=== PATIENT | female | born 1980 | race Caucasian/White ===

== ENCOUNTER 2024-06-19 12:59 | Emergency (ER) | payer OTHER, SELFPAY ==
[2024-06-19 13:17] VITALS: BP 145/98; PULSE 94; RESP 12; TEMP 36.6; O2SAT 97; BMI 42.8
[2024-06-19 13:56] LABS: Add Manual Diff / Slide Review NO; Basophils Absolute Auto 300 /uL (0-100); Basophils Percent Auto 2.9 % (0-2); Eosinophils Absolute Auto 200 /uL (0-450); Eosinophils Percent Auto 1.8 % (2-4); Hematocrit 42.3 % (36-46); Hemoglobin 14.3 g/dL (12.0-16.0); Lymphocytes Absolute Auto 1700 /uL (1100-4500); Lymphocytes Percent Auto 18.1 % (25-40); Mean Corpuscular HGB Conc 33.8 % (30-36); Mean Corpuscular Hemoglobin 30.6 PG (26-34); Mean Corpuscular Volume 90.4 fL (80-100); Monocytes Absolute Auto 600 /uL (0-900); Monocytes Percent Auto 6.3 % (3-14); Neutrophils Absolute Auto 6600 /uL (1500-7000); Neutrophils Percent Auto 70.9 % (50-75); Platelet Count 337 X10^3/uL (150-400); Red Blood Cell Count 4.68 X10^6/uL (4.0-5.2); Red Cell Distribution Width 14.1 % (11.6-14.8); White Blood Cell Count 9.3 X10^3/uL (4.5-11.0)
--- NOTE | 2024-06-19 14:04 | ED_ITS ---
HPI - Abdominal Pain General Chief Complaint: Abdominal Pain Stated Complaint: abd px Time Seen by Provider: 06/19/24 13:47 Source: patient Mode of arrival: Ambulatory History of Present Illness HPI narrative: Patient is a 43-year-old female history of severe PTSD hysterectomy secondary to fibroids and endometriosis, factor 5 Leiden on Eliquis presenting today with vaginal bleeding. She reports that she is having some lower abdominal pain she had a little bit last night this morning she is having increasing pain and she had blood on the tissue when she wiped. No painful frequent urination no nausea vomiting no back pain. She was visiting from out of town. Hysterectomy was 2 years ago. She denies any sort of trauma or injury to her vagina. Related Data Previous Rx's Medication Instructions Recorded hydrocodone 5 mg-acetaminophen 325 1 tab PO Q6H PRN pain #10 tabs 06/19/24 mg tablet Allergies Allergy/AdvReac Type Severity Reaction Status Date / Time No Known Drug Allergies Allergy Verified 06/19/24 13:23 Patient History Social History Smoking Status: Never smoker Smoking Status: Never smoker tobacco type: cigarettes Exam Initial Vital Signs Initial Vital Signs: Vital Signs Temperature 98 F 06/19/24 13:17 Pulse Rate 94 H 06/19/24 13:17 Respiratory Rate 12 06/19/24 13:17 Blood Pressure 145/98 H 06/19/24 13:17 Pulse Oximetry 97 06/19/24 13:17 Oxygen Delivery Method Room Air 06/19/24 13:17 GENERAL: Alert tearful 43-year-old female and in no acute distress. HEENT: Head atraumatic,EOMI, pupils reactive, face symmetric, moist mucous membranes CARDIOVASCULAR: Regular rate and rhythm without murmurs, rubs or gallops. RESPIRATORY: Breath sounds equal bilaterally, no wheezes rales or rhonchi. ABDOMEN: Soft, mild lower abdominal pain no guarding no rebound : No CVA tenderness PELVIC: External genitalia is normal, no vaginal bleeding, no vaginal discharge, no odor, there is a small sore around the 12:00 p.m. roof of the vaginal wall no active bleeding no gross discharge EXTREMITIES: Normal range of motion, no clubbing or edema. Neurovascularly intact NEUROLOGICAL: Alert and oriented x4.Normal gait and speech. SKIN: Warm, dry, no laceration, no petechiae, no rashes or lesions. Course Orders Ordered: ED Orders 06/19/24 13:23 EKG-12 Lead Stat 06/19/24 13:51 Complete Blood Count AUTO DIFF Stat Comprehensive Metabolic Panel Stat Lipase Stat 06/19/24 14:17 CT abdomen pelvis w con Stat 06/19/24 15:34 Genital Culture Stat Discontinued Medications Hydromorphone HCl (Hydromorphone 0.5 Mg Inj) 0.5 mg IV NOW ONE Stop: 06/19/24 15:06 Last Admin: 06/19/24 15:11 Dose: 0.5 mg Documented By: CAMPOS Morphine Sulfate (Morphine 4 Mg/Ml Inj) 4 mg IV NOW ONE Stop: 06/19/24 14:19 Last Admin: 06/19/24 14:35 Dose: 4 mg Documented By: SONJA Ondansetron HCl (Ondansetron 4 Mg/2 Ml Inj) 4 mg IV NOW PRN PRN Reason: Nausea And Vomiting Last Admin: 06/19/24 14:35 Dose: 4 mg Documented By: SONJA Ondansetron HCl (Ondansetron 4 Mg Odt) 4 mg PO NOW PRN PRN Reason: Nausea And Vomiting Vital Signs Vital signs: Vital Signs - 8 hr 06/19/24 13:17 06/19/24 15:42 Temperature 98 F Pulse Rate 94 H 81 Respiratory Rate 12 14 Blood Pressure 145/98 H 134/94 H Pulse Oximetry 97 98 Oxygen Delivery Method Room Air Room Air MDM - Abdominal Pain Lab Data 06/19/24 13:51 06/19/24 13:51 Labs: Lab Results 06/19/24 Range/Units 13:51 WBC 9.3 (4.5-11.0) X10^3/uL RBC 4.68 (4.0-5.2) X10^6/uL Hgb 14.3 (12.0-16.0) g/dL Hct 42.3 (36-46) % MCV 90.4 (80-100) fL MCH 30.6 (26-34) PG MCHC 33.8 (30-36) % RDW 14.1 (11.6-14.8) % Plt Count 337 (150-400) X10^3/uL Neut % (Auto) 70.9 (50-75) % Lymph % (Auto) 18.1 L (25-40) % [place] % (Auto) 6.3 (3-14) % Eos % (Auto) 1.8 L (2-4) % Baso % (Auto) 2.9 H (0-2) % Neut # (Auto) 6600 (1310-6649) /uL Lymph # (Auto) 1700 (6590-0331) /uL [place] # (Auto) 600 (0-900) /uL Eos # (Auto) 200 (0-450) /uL Baso # (Auto) 300 H (0-100) /uL Sodium 136 L (137-145) mmol/L Potassium 3.8 (3.4-5.1) mmol/L Chloride 106 (98-107) mmol/L Carbon Dioxide 20 L (22-32) mmol/L BUN 17 (7-17) mg/dL Creatinine 0.65 (0.52-1.04) mg/dL Estimated GFR > 60 (>60) mL/min BUN/Creatinine Ratio 26.2 H (6-22) Glucose 95 (70-100) mg/dL Calcium 9.8 (8.4-10.2) mg/dL Total Bilirubin 0.4 (0.2-1.3) mg/dL AST 28 (14-36) IU/L ALT 26 (<35) IU/L Alkaline Phosphatase 85 (38-126) U/L Total Protein 8.0 (6.3-8.2) g/dL Albumin 4.5 (3.5-5.0) g/dL Globulin 3.5 (1.7-4.1) g/dL Albumin/Globulin Ratio 1.3 (1.0-2.8) Lipase 163 (23-300) U/L Point of care testing: Urine Dip Bedside Urine Glucose Negative Bedside Urine Bilirubin - Negative Bedside Urine Ketone - Negative Urine Specific [place] 1.010 Bedside Urine Occult Blood ++ Bedside Urine pH 6.0 Bedside Urine Protein - Negative Bedside Urine Urobilinogen - Negative Bedside Urine Nitrite - Negative Bedside Urine Leukocytes - Negative Esterase MDM Narrative Medical decision making narrative: BATSHEVA CC: Abdominal pain vaginal bleeding Complicating co-morbidities: Factor V leiden on Eliquis. Medical records reviewed: Non3 Differential considered: UTI, pyloneohritis Exam documented above, pertinent findings include: Mildly tender in suprapubic area vaginal exam does show small wound in her vaginal vault Lab Test results independently reviewed as above. Pertinent findings: WBC 9.3, Hb 14.3, hct 42, plt 337 Na 136, K 3.8, Cl 106, CO2 20, BUN 17, Cr 0.65 Bili 0.4, AST 28, ALT 26, ALk Phos 85, Lipase 163 Imaging studies independently reviewed: Probable hemangioma in the liver High density sclerotic lesion 3.3 cm in her right posterior iliac bone, possibility atypical bone island possible malignancy Consultations: none Treatments: Morphine, Dilaudid Re-evaluations: Dilaudid seemed to help more than more Discussion: Patient 43-year-old female presents today with vaginal bleeding. She does take Eliquis her factor 5 Leiden. On exam she was found to have a small vaginal wound. She denies any sort of injury or abnormal intercourse. She has no active bleeding now. Culture sent, but no need for antibiotics at this time. No gross discharge. Blood work is overall reassuring CT does show some abnormality in the liver probably hemangioma but need further testing for confirmation There is also a right posterior iliac bone island may also need further imaging [place] she was given copies of her results. She has a PCP whom she sees regularly. I recommend outpatient follow up. We discussed return precautions Discharge Plan Departure Patient Disposition: Home Clinical Impression: Vaginal bleeding, Bone island, Hemangioma Activity Restrictions/Additional Instructions: *You have been diagnosed with vaginal bleeding *What to do: I do think there is small injury to your vagina which cause some vaginal bleeding. You do not have any bleeding any more. You do have some liver abnormalities you will require possible outpatient liver MRI however it is suspected that these are benign liver hemangiomas You also have right posterior iliac atypical bone island. Unclear significance of this *Continue to take medications as directed Leland 1 tablet every 6 hours if needed for severe pain *Follow up with your primary care provider in 2-3 days or call [phone] *Return to ER if you should have persistent bleeding more than 2 pads in 1 hour, increased abdominal pain persistent vomiting or any new, worsening or concerning symptoms CONTROLLED SUBSTANCE DISCHARGE (Narcotoic/benzodiazepine/Flexeril/Phenergan) 1. You have been prescribed narcotic medications, it does have acetaminophen/Tylenol/paracetamol in it, DO NOT TAKE MORE THAN 4,00mg in 24 hours of Tylenol. TRAMADOL DOES NOT CONTAIN TYLENOL 2. Please understand that we cannot provide further refills of narcotics, benzodiazepines or controlled substances through the ED and her pain management will need to be through your provider. 3. While on these medications you cannot drive or operate heavy machinery. 4. You cannot sign legal documents or perform any duties such as this. 5. As long as you're taking opiate pain medications he should also be taking a stool softener such as Colace, Dulcolax, MiraLAX or prune juice, to help avoid constipation. Prescriptions: New hydrocodone-acetaminophen 5-325 mg tablet 1 tab PO Q6H PRN (Reason: pain) Qty: 10 0RF Referrals: Miscellaneous,Doctor, MD [Primary Care Provider] - Stand Alone Forms: Patient Portal/API/Survey
[2024-06-19 14:05] LABS: Alanine Aminotransferase 26 IU/L (<35); Albumin 4.5 g/dL (3.5-5.0); Albumin Globulin Ratio 1.3 (1.0-2.8); Alkaline Phosphatase 85 U/L (38-126); Aspartate Aminotransferase 28 IU/L (14-36); BUN Creatinine Ratio 26.2 (6-22); Bilirubin Total 0.4 mg/dL (0.2-1.3); Blood Urea Nitrogen 17 mg/dL (7-17); Calcium 9.8 mg/dL (8.4-10.2); Carbon Dioxide 20 mmol/L (22-32); Chloride 106 mmol/L (98-107); Estimated Glomerular Filt Rate > 60 mL/min (>60); Globulin 3.5 g/dL (1.7-4.1); Glucose 95 mg/dL (70-100); HEMOLYSIS < 15 (0-50); Lipase 163 U/L (23-300); Potassium 3.8 mmol/L (3.4-5.1); Sodium 136 mmol/L (137-145)
--- NOTE | 2024-06-19 14:17 | DI.CT.S_ITS ---
PROCEDURE: CT ABDOMEN PELVIS W CON INDICATIONS: lower ab pain, vag bleeding with hysterectomy TECHNIQUE: After the administration of intravenous contrast, axial sections acquired from the lung bases to the pubic symphysis. Coronal and sagittal reformats were performed. For radiation dose reduction, the following was used: automated exposure control, adjustment of mA and/or kV according to patient size. COMPARISON: None. FINDINGS: Image quality: Diagnostic Lower chest: Lungs are unremarkable at the bases. Normal heart size Liver: There are subtle liver lesions, for example in segment 4 measuring 1.4 cm on image 2/24 Gallbladder and biliary system: Unremarkable, nondilated Pancreas: No ductal dilation Spleen: Nonenlarged Adrenals: No discrete nodules Kidneys: No solid mass. No hydronephrosis. Vessels and lymph nodes: The main portal vein appears patent. No abdominal aortic aneurysm. No pathologic lymph nodes by size criteria. Bowel and peritoneum: No small bowel obstruction. No abscess or pathologic ascites. Mild wall thickening of the distal colon with liquid contents. Calcifications seen in the right lower quadrant without a dilated appendix identified Body wall: Small fat containing umbilical hernia Pelvis: Under distended bladder, not well assessed on this study. Hysterectomy changes. Adnexal structures are unremarkable on limited CT evaluation. Bones: Unremarkable osseous structures. High density sclerotic lesion measuring 3.3 cm in the right posterior iliac bone. IMPRESSION: No drainable abscess. No pathologic ascites. Hysterectomy changes are present. No bowel obstruction. Mild distal colonic wall thickening and liquid contents, possibly colitis. Incidentally noted subtle liver lesions, for example in segment 4 measuring 1.4 cm. If the patient does not have a malignancy history, these may be benign, such as hemangioma or focal nodular hyperplasia. Eovist liver MRI is suggested to further evaluate. Indeterminate densely sclerotic lesion in the right posterior iliac bone, possibly an atypical bone island. Consider follow-up to ensure stability if the patient has a primary history of malignancy elsewhere. Dictated by: Mayo Weber M.D. on 06/19/2024 at 13:43 Approved by: Mayo Weber M.D. on 06/19/2024 at 13:48
[2024-06-19] MEDS: ONDANSETRON 4 MG/2 ML INJ IV (14:35)
[2024-06-19] MEDS: MORPHINE 4 MG/ML INJ IV (14:35)
[2024-06-19] MEDS: HYDROMORPHONE 0.5 MG INJ IV (15:11)
[2024-06-19 15:42] VITALS: BP 134/94; PULSE 81; RESP 14; O2SAT 98
== END 2024-06-19 15:49 | disposition home or self-care (01) ==
PROVIDERS: Emergency Provider Emergency Medicine
DX: N93.9 Abnormal uterine and vaginal bleeding, unspecified (principal); D18.09 Hemangioma of other sites; M89.9 Disorder of bone, unspecified; D68.51 Activated protein C resistance; Z79.01 Long term (current) use of anticoagulants
CPT/HCPCS: 36415; 74177; 80053; 81003; 83690; 85025; 87070; 87077; 87147; 87205; 96374; 96375; 99284; J1171; J2270; J2405; Q9967